=== PATIENT | male | born 1995 | race Caucasian/White ===

== ENCOUNTER 2016-10-19 01:32 | Emergency (ER) | payer MEDICAID, OTHER ==
[~2016-10-19] VITALS: Ht 167.6 cm; Wt 145.0 kg
[2016-10-19 01:38] VITALS: Ht 167.6 cm; Wt 145.0 kg
[2016-10-19] MEDS ORDERED: FAMOTIDINE 20 MG TAB PO ONE (02:00)
[2016-10-19] MEDS ORDERED: DIPHENHYDRAMINE 50 MG INJ IM ONE (02:00)
[2016-10-19] MEDS ORDERED: predniSONE 20 MG TAB PO ONE (02:00)
[2016-10-19] MEDS ORDERED: PRED20TA PO (02:37)
[2016-10-19] MEDS ORDERED: BEN25 PO (02:37)
[2016-10-19 02:49] VITALS: BP 145/86; PULSE 81; RESP 18
--- NOTE | 2016-10-19 03:00 | ERD ---
ER Documentation Chief Complaint Date/Time DATE: 10/19/16 TIME: 02:39 Chief Complaint c/o generalized rash since 1900. No SB. HPI 20-year-old male presents for a rash going on for 4 hours now. Is very itchy rash that he noticed on his body with some bumps. He has no known allergies. Denies any shortness of breath or new exposures to possible allergens. ROS All systems reviewed and are negative except as per history of present illness. Medications Home Meds Active Scripts Prednisone* (Prednisone*) 20 Mg Tab, 40 MG PO DAILY for 4 Days, TAB Prov:VENKAT TORRES DO 10/19/16 Diphenhydramine Hcl* (Benadryl*) 25 Mg Cap, 25 MG PO Q6 Y for ITCHING/RASH, #30 TAB Prov:VENKAT TORRES DO 10/19/16 PMhx/Soc Medical and Surgical Hx: pt denies Medical Hx, pt denies Surgical Hx Hx Alcohol Use: Yes Hx Substance Use: No Smoking Status: Never smoker Physical Exam Vitals Vital Signs Date Time Temp Pulse Resp B/P Pulse Ox O2 Delivery O2 Flow Rate FiO2 10/19/16 01:38 98.3 87 20 165/89 95 Physical Exam Const: [] , Obese male in no distress ENT: Normal External Ears, Nose and Mouth. Resp: Clear to auscultation bilaterally Cardio: Regular rate and rhythm, no murmurs Skin: No petechiae, DiffuseErythematous maculopapular rash with raised lesions resembling hives. Ext: No cyanosis, or edema Results 24 hrs Current Medications Medications (Trade) Dose Ordered Sig/Hayley Route PRN Reason Start Time Stop Time Status Last Admin Dose Admin Diphenhydramine HCl (Benadryl) 50 mg ONCE ONCE IM 10/19/16 02:00 10/19/16 02:01 DC 10/19/16 01:53 Famotidine (Pepcid) 20 mg ONCE ONCE PO 10/19/16 02:00 10/19/16 02:01 DC 10/19/16 01:53 Prednisone (Prednisone) 60 mg ONCE ONCE PO 10/19/16 02:00 10/19/16 02:01 DC 10/19/16 01:54 Procedures/MDM Urticarial allergic reaction and 20-year-old male with no respiratory symptoms. Was given 50 mg of IM Benadryl as well as 20 mg p.o. Pepcid and a 60 mg prednisone tablet. Going to discharge him with Benadryl as well as prednisone for 4 days and return precautions. Departure Diagnosis: Primary Impression: Urticaria Condition: Stable Patient Instructions: When Your Child Has Hives (Urticaria) or Angioedema Additional Instructions: Call your primary care doctor TOMORROW for an appointment during the next 2-3 days.See the doctor sooner or return here if your condition worsens before your appointment time. VENKAT TORERS DO Oct 19, 2016 02:55
== END 2016-10-19 02:52 | disposition home or self-care (01) ==
LOC: E/R 01:32
DX: L50.9 Urticaria, unspecified (principal)
CPT/HCPCS: 96372; J1200; J7512; Z7502; Z7610